=== PATIENT | female | born 1990 | race Caucasian/White ===

== ENCOUNTER 2017-11-22 02:55 | Inpatient (IN) | payer MEDICAID ==
[~2017-11-22] VITALS: Ht 160 cm; Wt 63.0 kg
[2017-11-22] MEDS ORDERED: LACTATED RINGER'S 1000 ML INJ 1,000 ML IV SCH (03:37)
[2017-11-22] MEDS ORDERED: LACTATED RINGER'S 1000 ML INJ 1,000 ML IV PRN (03:37)
--- NOTE | 2017-11-22 03:44 | HHI.HP ---
HPI Chief Complaint Contractions Date Seen: November 22, 2017 Time Seen: 03:39 Travel History International Travel<30 Days: No Contact w/Intl Traveler<30Days: No Known Affected Area: No History of Present Illness HPI 27-year-old white female G1 2 P1 38 weeks gestation sees Maureen Alejo for care and presents in active labor. No bleeding or leakage, heart rate tracing reactive, contractions are every 2-3 minutes and painful Weeks Gestation: 38 Para: 1 : 2 History Obstetric History Obstetric History 1 vaginal delivery Social History Alcohol Use: No Tobacco Use: No Substance Abuse: No Allergies-Medications (Allergen,Severity, Reaction): Coded Allergies: No Known Allergies (Unverified , 11/22/17) Review of Systems General / Constitutional: No: Fever, Weight Gain, Chills, Other Eyes: No: Diploplia, Blurred Vision, Visual changes, Pain, Photophobia HENT: No: Headaches, Vertigo, Lightheadedness Cardiovascular: No: Irregular Rhythm, Chest Pain or Discomfort, Palpitations, Tachycardia, Syncope, Varicosities, Edema, Cyanosis Respiratory: No: Cough, Short of Breath, Other Gastrointestinal: Abdominal Pain, No: Nausea, Vomiting, Diarrhea Genitourinary: No: Decreased Urinary Output, Oliguria Musculoskeletal: No: Limited ROM, Weakness, Cramping, Edema, Pain Skin: No Rash, No Itching, No Dryness, No Lumps, No Change in Pigmentation, No Change in Nails, No Alopecia, No Lesions Neurologic: No: Weakness, Dizziness, Syncope, Focal Abnormalities, Coordination Problem, Headache, Slurred Speech, Seizures Psychiatric: No: Depression, Suicidal Ideations, Homicidal Ideation Endocrine: No: Heat Intolerance, Cold Intolerance, Polydipsia, Polyuria, Other Physical Exam Narrative GENERAL: Well-nourished, well-developed patient. SKIN: Warm and dry. HEAD: Normocephalic and atraumatic. EYES: No scleral icterus. No injection or drainage. ENT: No nasal drainage noted. Mucous membranes pink. Airway patent. NECK: Supple, trachea midline. No JVD. CARDIOVASCULAR: Regular rate and rhythm without murmurs, gallops, or rubs. RESPIRATORY: Breath sounds equal bilaterally. No accessory muscle use. BREASTS: Bilateral exam showed no masses , no retractions, no nipple discharge. ABDOMEN/GI: Abdomen soft, non-tender, bowel sounds present, no rebound, no guarding Gravid to [38-] weeks size Fundal Height: [38-] GENITOURINARY: External Genitalia: intact and normal in appearance BUS glands: [-] Cervix: [-ant] Dilatation: [4-5-] Effacement: [80-] Station: [-1] Presentation: [vtx-] Membranes: [intact ] Uterine Contractions: [-q 2 min] FHT's: Category: [1-] Baseline: [133-] Reactive: [-R] Variability: [mod] Decels: [-0] EXTREMITIES: No cyanosis or edema. BACK: Nontender without obvious deformity. No CVA tenderness. NEUROLOGICAL: Awake and alert. Motor and sensory grossly within normal limits. Five out of 5 muscle strength in all muscle groups. Normal speech. Caprini VTE Risk Assessment Caprini VTE Risk Assessment: No/Low Risk (score <= 1) Caprini Risk Assessment Model Point Value = 1 Point Value = 2 Point Value = 3 Point Value = 5 Age 41-60 Minor surgery BMI > 25 kg/m2 Swollen legs Varicose veins or History of unexplained or recurrent spontaneous Oral contraceptives or hormone replacement Sepsis (< 1 month) Serious lung disease, including pneumonia (< 1 month) Abnormal pulmonary function Acute myocardial infarction Congestive heart failure (< 1 month) History of inflammatory bowel disease Medical patient at bed rest Age 61-74 Arthroscopic surgery Major open surgery (> 45 min) Laparoscopic surgery (> 45 min) Malignancy Confined to bed (> 72 hours) Immobilizing plaster cast Central venous access Age >= 75 History of VTE Family history of VTE Factor V Leiden Prothrombin [id number] Lupus anticoagulant Anticardiolipin antibodies Elevated serum homocysteine Heparin-induced thrombocytopenia Other congenital or acquired thrombophilia Stroke (< 1 month) Elective arthroplasty Hip, pelvis, or leg fracture Acute spinal cord injury (< 1 month) Prophylaxis Regimen Total Risk Factor Score Risk Level Prophylaxis Regimen 0-1 Low Early ambulation 2 Moderate Order ONE of the following: *Sequential Compression Device (SCD) *Heparin 5000 units SQ BID 3-4 Higher Order ONE of the following medications: *Heparin 5000 units SQ TID *Enoxaparin/Lovenox 40 mg SQ daily (WT < 150 kg, CrCl > 30 mL/min) *Enoxaparin/Lovenox 30 mg SQ daily (WT < 150 kg, CrCl > 10-29 mL/min) *Enoxaparin/Lovenox 30 mg SQ BID (WT < 150 kg, CrCl > 30 mL/min) AND/OR *Sequential Compression Device (SCD) 5 or more Highest Order ONE of the following medications: *Heparin 5000 units SQ TID (Preferred with Epidurals) *Enoxaparin/Lovenox 40 mg SQ daily (WT < 150 kg, CrCl > 30 mL/min) *Enoxaparin/Lovenox 30 mg SQ daily (WT < 150 kg, CrCl > 10-29 mL/min) *Enoxaparin/Lovenox 30 mg SQ BID (WT < 150 kg, CrCl > 30 mL/min) AND *Sequential Compression Device (SCD) Data Data Orders Orders Ob (2e) Additional Admit Info (11/22/17 03:36) Admit To Inpatient (11/22/17 ) Vital Signs (Adult) .Per protocol (11/22/17 03:37) Heart (11/22/17 03:37) Amnioinfusion (11/22/17 03:37) Urinary Catheter Management .ONCE (11/22/17 03:37) Lactated Ringer's 1000 Ml Inj (Lr 1000 M (11/22/17 03:37) Lactated Ringer's 1000 Ml Inj (Lr 1000 M (11/22/17 03:37) Sodium Chlorid 0.9% 500 Ml Inj (Ns 500 M (11/22/17 03:45) Sodium Chlor 0.9% 1000 Ml Inj (Ns 1000 M (11/22/17 03:57) Lidocaine 1% Inj (50 Ml) (Xylocaine 1% I (11/22/17 03:45) Citric Acid-Sodium Citrate Liq (Bicitra (11/22/17 03:45) Fentanyl Inj (Fentanyl Inj) (11/22/17 03:45) Fentanyl Inj (Fentanyl Inj) (11/22/17 03:45) Complete Blood Count With Diff (11/22/17 03:37) Hold Clot (11/22/17 03:37) Abo/Rh Blood Type (11/22/17 03:37) Urinalysis - C+S If Indicated (11/22/17 03:37) Drug Screen, Random Urine (11/22/17 03:37) Ob/Psych Drug Screen, Urine (11/22/17 03:37) Resp Oxygen Non Rebreathe Mask (11/22/17 ) ^ Epidural / Intrathecal Infus (11/22/17 03:37) Oxytocin 30 Units-500ml Premix (Pitocin (11/22/17 03:45) Lidocaine 1% Inj (50 Ml) (Xylocaine 1% I (11/22/17 03:45) Light Mineral Oil (Muri-Lube Oil) (11/22/17 03:45) Group B Strep: Negative Labs Patient is 27-year-old at 38 weeks now in active labor presents with contractions painful and regular cervix is 4-5/90%/-1, NST is reactive Plan-admit labor and delivery, managed labor appropriately, anticipate vaginal delivery Assessment/Plan Assessment and Plan 38 week intrauterine in active labor with reassuring heart rate tracing Plan-admit labor and delivery manage labor appropriately anticipate vaginal delivery Ifeanyi Broderick II, MD November 22, 2017 03:44
[2017-11-22] MEDS ORDERED: SODIUM CHLORID 0.9% 500 ML INJ 500 ML IV PRN (03:45)
[2017-11-22] MEDS ORDERED: MINERAL OIL 10 ML VIAL TOPICAL PRN (03:45)
[2017-11-22] MEDS ORDERED: CITRIC ACID-SODIUM CITRATE LIQ 30 ML UDC PO SCH (03:45)
[2017-11-22] MEDS ORDERED: LIDOCAINE HCL 1% 50 ML VIAL I-DERMAL PRN (03:45)
[2017-11-22] MEDS ORDERED: OXYTOCIN 30 UNITS-500ML PREMIX 500 ML IV ONE (03:45)
[2017-11-22] MEDS ORDERED: LIDOCAINE HCL 1% 50 ML VIAL INFIL PRN (03:45)
[2017-11-22] MEDS ORDERED: SODIUM CHLOR 0.9% 1000 ML INJ 1,000 ML IV PRN (03:57)
[2017-11-22] MEDS ORDERED: Prenatal Vitamin PO (04:02)
[2017-11-22 04:07] LABS: AUTOMATED NEUTROPHIL # 6.8 TH/MM3 (1.8-7.7); BASOPHIL # 0.1 TH/MM3 (0-0.2); BASOPHIL % 0.6 % (0.0-2.0); EOSINOPHIL # 0.1 TH/MM3 (0-0.4); EOSINOPHIL % 0.5 % (0.0-4.0); HEMATOCRIT 35.1 % (35.0-46.0); HEMOGLOBIN 11.9 GM/DL (11.6-15.3); LYMPH % 28.3 % (9.0-44.0); MEAN CELL VOLUME 88.1 FL (80.0-100.0); MEAN PLATELET VOLUME 8.6 FL (7.0-11.0); MONO % 6.2 % (0.0-8.0); MONOCYTE # 0.7 TH/MM3 (0-0.9); NEUT % 64.4 % (16.0-70.0); PLATELET COUNT 283 TH/MM3 (150-450); RED BLOOD COUNT 3.98 MIL/MM3 (4.00-5.30); RED CELL DISTRIBUTION WIDTH 12.9 % (11.6-17.2); WHITE BLOOD COUNT 10.6 TH/MM3 (4.0-11.0)
[2017-11-22 05:00] LABS: BACTERIA, URINE RARE /hpf; BILIRUBIN, URINE NEG (NEG); BLOOD, URINE NEG (NEG); GLUCOSE,URINE NEG (NEG); KETONE, URINE NEG (NEG); NITRITE,URINE NEG (NEG); SQUAMOUS EPITHELIAL CELL URINE 7 /hpf (0-5); URINE COLOR LIGHT-YELLOW (YELLW/STRAW); URINE LEUKOCYTE ESTERASE SMALL (NEG)
[2017-11-22] MEDS ORDERED: LIDOCAINE HCL 1% PF 30 ML VIAL ONE (05:32)
[2017-11-22] MEDS ORDERED: ALUMINUM/MAGNESIUM/SIMETH 30 ML CUP PO PRN (05:45)
[2017-11-22] MEDS ORDERED: oxyCODONE/ACETAMINOPHEN 5 MG/325 MG TAB PO PRN (05:45)
[2017-11-22] MEDS ORDERED: IBUPROFEN 800 MG TAB PO PRN (05:45)
[2017-11-22] MEDS ORDERED: WITCH HAZEL 50%/GLYCERIN 12.5% 40 PAD JAR TOPICAL PRN (05:45)
[2017-11-22] MEDS ORDERED: BENZOCAINE 20% TOPICAL SPRAY 60 ML CAN TOPICAL PRN (05:45)
[2017-11-22] MEDS ORDERED: ONDANSETRON ODT 4 MG TAB PO PRN (05:45)
[2017-11-22] MEDS ORDERED: DOCUSATE SODIUM 50 MG/SENNA 8.6 MG TAB PO PRN (05:45)
[2017-11-22] MEDS ORDERED: OXYTOCIN 30 UNITS-500ML PREMIX 500 ML IV SCH (05:45)
[2017-11-22] MEDS ORDERED: ZOLPIDEM TARTRATE 5 MG TAB PO PRN (05:45)
[2017-11-22] MEDS ORDERED: ACETAMINOPHEN 325 MG TAB PO PRN (05:45)
[2017-11-22] MEDS ORDERED: SODIUM CHLORIDE 0.9% FLUSH 10 ML FLUSH IV FLUSH PRN (05:45)
--- NOTE | 2017-11-22 05:45 | PD.OB.DELI ---
Weeks gestation: 38 Anesthesia: Other Episiotomy: None Vaginal Delivery: Normal Presentation: Occiput anterior Nuchal Cord: None Delayed cord clamping (45 sec): Yes Delivery date: November 22, 2017 Delivery time: 05:18 One Minute : 8 Five Minute : 9 Weight: 3035 gm Placenta: Spontaneous delivery, Intact Laceration: Vaginal laceration, 1 deg Repair: Vicryl running Estimated blood loss: 200 cc Additional Information large clitoral stewart laceration going down to the urethra repaired with local , running 3-0 vicryl , urethra catheterized to avoid oversewing it Ifeanyi Broderick II, MD November 22, 2017 05:45
[2017-11-22] MEDS ORDERED: SODIUM CHLORIDE 0.9% FLUSH 10 ML FLUSH IV FLUSH SCH (09:00)
[2017-11-22] MEDS ORDERED: DIPHTH/TETANUS/ACEL PERTUSSIS (BOOSTER) 0.5 ML VIAL/PFS IM ONE (16:00)
[2017-11-22] MEDS ORDERED: MEASLES, MUMPS, RUBELLA VACCINE 0.5 ML VIAL SQ ONE (16:00)
[2017-11-23] MEDS ORDERED: IBUP1TAB7 PO (08:00)
--- NOTE | 2017-11-23 08:01 | HHI.DCPOC ---
Discharge Care Plan Diagnosis: (1) Normal vaginal delivery (2) Obstetric vaginal laceration, delivered, current hospitalization Report Symptoms to Your Doctor -Temperature above 100.5 degrees -Redness, of incision or excessive or foul smelling drainage -Unusual pain or calf pain -Increased vaginal bleeding -Painful or difficulty urinating -Feelings of extreme sadness or anxiety after 2 weeks Goals to Promote Your Health * To prevent worsening of your condition and complications * To maintain your health at the optimal level Directions to Meet Your Goals Take your medications as prescribed Follow your dietary instruction Follow activity as directed Ensure plenty of rest for recovery Drink fluids for hydration Keep your appointments as scheduled Take your immunizations and boosters as scheduled If your symptoms worsen call your PCP, if no PCP go to Urgent Care Center or Emergency Room Smoking is Dangerous to Your Health. Avoid second hand smoke Call the 24-hour crisis hotline for domestic abuse at Jose Chester MD R2 November 23, 2017 08:01
--- NOTE | 2017-11-23 09:23 | HHI.OB ---
Subjective Remarks 27 year old female s/p at 38 wks gestation, PPD 1. AFVSS. Patient reports she is feeling well. Bleeding is decreasing and pain is well- controlled. She is breast feeding and bonding well with baby. Ambulating without difficulties. She is tolerating a diet without nausea or vomiting. She has not had a bowel movement. She has passed gas. Denies chest pain, dysuria, shortness of breath, or calf pain. Objective Objective Remarks GENERAL: Well-nourished, well-developed patient. CARDIOVASCULAR: Regular rate and rhythm without murmurs, gallops, or rubs. RESPIRATORY: Breath sounds equal bilaterally. No accessory muscle use. ABDOMEN/GI: Abdomen soft, non-tender. Fundus: Firm, non-tender at 2-3 cm below umbilicus. GENITOURINARY: Light to moderate bleeding. EXTREMITIES: No cyanosis or edema, non-tender, without signs of DVT. Medications and IVs Current Medications Medications (Trade) Dose Ordered Sig/Evangelista Route Start Time Stop Time Status Last Admin Lactated Ringer's 1,000 ml @ 125 mls/hr Q8H IV 11/22/17 03:37 11/22/17 04:01 Lactated Ringer's 1,000 ml @ 3,000 mls/hr Q20M PRN IV 11/22/17 03:37 Sodium Chloride 1,000 ml @ 100 mls/hr Q10H PRN IV 11/22/17 03:57 (Xylocaine 1% Inj (50 ml)) 0.1 ml UNSCH X1 PRN I-DERMAL 11/22/17 03:45 11/25/17 03:44 (Bicitra Liq) 30 ml [employer] PO 11/22/17 03:45 11/26/17 03:44 (fentaNYL INJ) 50 mcg Q1H PRN IV PUSH 11/22/17 03:45 (fentaNYL INJ) 100 mcg Q1H PRN IV PUSH 11/22/17 03:45 (Xylocaine 1% Inj (50 ml)) 10 ml UNSCH X1 PRN INFIL 11/22/17 03:45 11/24/17 03:44 11/22/17 05:53 (Muri-Lube Oil) 10 ml UNSCH PRN TOPICAL 11/22/17 03:45 11/22/17 05:53 (NS Flush) 2 ml BID IV FLUSH 11/22/17 09:00 (NS Flush) 2 ml UNSCH PRN IV FLUSH 11/22/17 05:45 (Tylenol) 650 mg Q4H PRN PO 11/22/17 05:45 (Motrin) 800 mg Q8H PRN PO 11/22/17 05:45 (Americaine 20% Top Spr) 1 spray Q4H PRN TOPICAL 11/22/17 05:45 (Tucks Pads) 1 applic QID PRN TOPICAL 11/22/17 05:45 11/22/17 22:59 (Asya-Colace) 2 tab Q12H PRN PO 11/22/17 05:45 (Ambien) 5 mg HS PRN PO 11/22/17 05:45 (Mag-Al Plus Susp Liq) 15 ml Q8H PRN PO 11/22/17 05:45 (Zofran Odt) 4 mg Q6H PRN PO 11/22/17 05:45 Assessment/Plan Assessment and Plan 27 yo female s/p , PPD 1 - AFVSS - Continue routine care - Motrin PRN pain - Encourage OOB - Pelvic rest x 6 wks - Contraception: plus barrier/withdrawal/timing method - Home today Jose Chester MD R2 November 23, 2017 09:23
== END 2017-11-23 12:43 | disposition home or self-care (01) | DRG 775 ==
LOC: HOBED 02:55 → H2EB 03:37 → H1EA 07:40
PROVIDERS: ADMIT Obstetrics & Gynecology Maternal & Fetal Medicine; ATTEND Obstetrics & Gynecology Maternal & Fetal Medicine
PROC: 10E0XZZ Delivery of Products of Conception, External Approach (ICD-10-PCS; principal; 2017-11-22)
PROC: 0TQDXZZ Repair Urethra, External Approach (ICD-10-PCS; 2017-11-22)
PROC: 0UQJXZZ Repair Clitoris, External Approach (ICD-10-PCS; 2017-11-22)
PROC: 0HQ9XZZ Repair Perineum Skin, External Approach (ICD-10-PCS; 2017-11-22)
DX: O71.4 Obstetric high vaginal laceration alone (principal); Z37.0 Single live birth; O71.5 Other obstetric injury to pelvic organs; Z3A.38 38 weeks gestation of pregnancy
CPT/HCPCS: 80307; 81001; 85025; 86900; 86901; 90715; J2590; J7120